=== PATIENT | male | born 1955 | race Caucasian/White ===

== ENCOUNTER 2016-11-24 17:59 | Emergency (ER) | payer BC ==
[2016-11-24 18:08] VITALS: BP 137/86
--- NOTE | 2016-11-24 18:34 | EDM.PDOC ---
ED HPI GENERAL MEDICAL PROBLEM - General Chief Complaint: Laceration Stated Complaint: crushed toe Time Seen by Provider: 11/24/16 18:01 Source of Information: Reports: Patient, Family, RN, RN Notes Reviewed History Limitations: Reports: No Limitations - History of Present Illness INITIAL COMMENTS - FREE TEXT/NARRATIVE: Patient presents to the emergency room at [facility] after he sustained a crush injury to the left great toe. The patient states he was lifting a porcelain [place] sign off his carotid wall, when the signs slipped landing directly on the left great toe causing toenail avulsion. The patient denies any recent left foot injuries. No recent left foot surgeries. The patient denies any numbness tingling or paresthesia to the affected extremity. Onset: Today Left Foot Pain Score (Numeric/FACES): 2 - Related Data Allergies Allergy/AdvReac Type Severity Reaction Status Date / Time No Known Drug Allergies Allergy Other Verified 04/03/15 15:03 Home Meds: Home Meds Acetaminophen [Pain Relief] 650 mg PO Q4HR PRN 05/04/14 [History] Aspirin [Gabby Chewable Aspirin] 81 mg PO DAILY 05/04/14 [History] Losartan Potassium 25 mg PO DAILY 05/04/14 [History] Metoprolol Succinate 25 mg PO DAILY 05/04/14 [History] Ticagrelor [Brilinta] 90 mg PO BID 05/04/14 [History] atorvaSTATin Calcium [Atorvastatin Calcium] 80 mg BEDTIME 05/04/14 [History] Social & Family History - Tobacco Use Smoking Status *Q: Never Smoker Second Hand Smoke Exposure: No - Alcohol Use Days Per Week of Alcohol Use: 0 - Recreational Drug Use Recreational Drug Use: No ED ROS GENERAL - Review of Systems Review Of Systems: See Below Constitutional: Reports: No Symptoms. Denies: Fever, Chills, Weakness Respiratory: Denies: Shortness of Breath, Cough Cardiovascular: Denies: Chest Pain, Palpitations Musculoskeletal: Reports: Foot Pain Skin: Reports: Wound (crush injury to left great toe) Neurological: Reports: No Symptoms. Denies: Numbness, Paresthesia, Tingling ED EXAM, SKIN/RASH Exam: See Below Exam Limited By: No Limitations General Appearance: Alert, No Apparent Distress Respiratory/Chest: No Respiratory Distress, Lungs Clear, Normal Breath Sounds Cardiovascular: Regular Rate, Rhythm Peripheral Pulses: 2+: Posterior Tibial (L), Dorsalis Pedis (L) Extremities: Slow Capillary Refill (left great toe) Neurological: Alert, Oriented Skin: Warm, Dry, Normal Color, No Rash, Wound/Incision Location, Skin: Lower Extremity, Left Characteristics: Other (Crush injury to the left great toe, complete nail avulsion with subungual hematoma laceration to the cuticle area, small great venous ooze) Associated features: Tenderness ED SKIN PROCEDURES - Additional/Other Procedure(s) Other (Free Text) Procedure(s): Left great toe numbed with 10cc 1% Lidocaine; tourniquet applied; once adequate anesthesia was achieved, the entire toe nail was removed without difficulty. Sterile dressing applied and covered with Coban. Tourniquet removed. Darco shoe applied. Course - Vital Signs Last Recorded V/S: Last Vital Signs Temp 35.7 C 11/24/16 18:06 Pulse 67 11/24/16 18:06 Resp 18 11/24/16 18:06 BP 137/86 11/24/16 18:06 Pulse Ox 94 L 11/24/16 18:06 - Orders/Labs/Meds Orders: Active Orders 24 hr Category Date Time Status Toes Great Toe Lt TA [CR] Stat Exams 11/24/16 18:29 Taken Meds: Medications Discontinued Medications Generic Name Dose Route Start Last Admin Trade Name Davian PRN Reason Stop Dose Admin Lidocaine HCl 30 ml 11/24/16 18:41 11/24/16 19:31 Xylocaine-Mpf 1% INJECT 11/24/16 18:42 10 ml ONETIME ONE Administration Departure - Departure Time of Disposition: 20:08 Disposition: Home, Self-Care 01 Condition: good Clinical Impression: Nail avulsion of toe Qualifiers: Encounter type: initial encounter Qualified Code(s): S91.209A - Unspecified open wound of unspecified toe(s) with damage to nail, initial encounter Fracture, phalanx, foot Qualifiers: Encounter type: initial encounter Toe: great toe Fracture type: closed Phalanx : distal Fracture alignment: nondisplaced Laterality: left Qualified Code(s): S92.425A - Nondisplaced fracture of distal phalanx of left great toe, initial encounter for closed fracture - Discharge Information Instructions: Nail Avulsion, Fingernail or Toenail Removal, Toe Fracture Forms: ED Department Discharge Additional Instructions: 1. Stay well hydrated and rest 2. Wear Darco show at all times for the next 4 weeks 3. Leave bandage on for the next 3 days, then remove 4. Establish care for a recheck and additional xray to make sure your fracture is healing and also check on healing of the nail bed 5. Take pain medication sparingly as it can make you drowsy 6. It will take at least 9 months for toenail to regrow 7. Return as symptoms warrant - Problem List Review Problem List Initiated/Reviewed/Updated: Yes - My Orders Last 24 Hours: My Active Orders 11/24/16 18:29 Toes Great Toe Lt TA [CR] Stat - Assessment/Plan Last 24 Hours: My Active Orders 11/24/16 18:29 Toes Great Toe Lt TA [CR] Stat
[2016-11-24] MEDS ORDERED: Lidocaine 1% 30 ML SDV INJECT ONE (18:41)
[2016-11-24] MEDS ORDERED: Take Home: Acetaminophen/HYDROcodone 325-5 MG, 5 Tab Pack PO ONE (20:14)
[2016-11-24] MEDS ORDERED: Diphtheria,Pertussis(Acell),Tetanus Vaccine 0.5 ML Syringe IM ONE (21:27)
== END 2016-11-24 20:23 | disposition home or self-care (01) ==
LOC: VM.ED 17:59
DX: S92.425A Nondisplaced fracture of distal phalanx of left great toe, initial encounter for closed fracture (principal); S91.202A Unspecified open wound of left great toe with damage to nail, initial encounter; Z79.82 Long term (current) use of aspirin; Z79.899 Other long term (current) drug therapy; X50.0XXA Overexertion from strenuous movement or load, initial encounter
CPT/HCPCS: 11730; 73660; 99283; A9270

== ENCOUNTER 2016-11-25 20:55 | Observation (INO) | payer BC ==
[2016-11-25] MEDS ORDERED: HYDROmorphone 1 MG/ML Syringe IM ONE (21:09)
[2016-11-25] MEDS ORDERED: Ondansetron 4 MG Tab.DIS PO ONE (21:09)
[2016-11-25] MEDS ORDERED: Cyclobenzaprine 10 MG Tab PO ONE (21:09)
--- NOTE | 2016-11-25 23:19 | EDM.PDOC ---
ED HPI GENERAL MEDICAL PROBLEM - General Chief Complaint: Back Pain or Injury Stated Complaint: low back pain Time Seen by Provider: 11/25/16 20:59 Source of Information: Reports: Patient History Limitations: Reports: No Limitations - History of Present Illness INITIAL COMMENTS - FREE TEXT/NARRATIVE: Patient reports injuring his back last week moving a bobcat shovel. He has had pain for about the last week but this afternoon the back pain was so intense that he was unable to walk. Pain is described as being to his left lower back, buttock, and hip. Denies any history of prior back injury. He has no other complaints this evening. Was seen yesterday after dropping a steel sign on his toe. His nail was removed for that. 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(s) (norco) Lower Back Pain Score (Numeric/FACES): 3 - Related Data Allergies Allergy/AdvReac Type Severity Reaction Status Date / Time No Known Drug Allergies Allergy Other Verified 11/25/16 21:01 Home Meds: Home Meds Acetaminophen [Pain Relief] 650 mg PO Q4HR PRN 05/04/14 [History] Aspirin [Gabby Chewable Aspirin] 81 mg PO DAILY 05/04/14 [History] Losartan Potassium 25 mg PO DAILY 05/04/14 [History] Metoprolol Succinate 25 mg PO DAILY 05/04/14 [History] Ticagrelor [Brilinta] 90 mg PO BID 05/04/14 [History] atorvaSTATin Calcium [Atorvastatin Calcium] 80 mg BEDTIME 05/04/14 [History] Past Medical History Other HEENT History: noncontributory Social & Family History - Tobacco Use Smoking Status *Q: Unknown Ever Smoked Second Hand Smoke Exposure: No - Caffeine Use Caffeine Use: Reports: Coffee - Alcohol Use Days Per Week of Alcohol Use: 0 - Recreational Drug Use Recreational Drug Use: No ED ROS GENERAL - Review of Systems Review Of Systems: See Below Constitutional: Reports: No Symptoms HEENT: Reports: No Symptoms Respiratory: Reports: No Symptoms Cardiovascular: Reports: No Symptoms Endocrine: Reports: No Symptoms GI/Abdominal: Reports: No Symptoms : Reports: No Symptoms Musculoskeletal: Reports: Back Pain, Leg Pain Skin: Reports: No Symptoms Neurological: Reports: No Symptoms Psychiatric: Reports: No Symptoms Hematologic/Lymphatic: Reports: No Symptoms Immunologic: Reports: No Symptoms ED EXAM,LOWER BACK PAIN/INJURY - Physical Exam Exam: See Below Exam Limited By: No Limitations General Appearance: Alert, WD/WN, Mild Distress Eye Exam: Bilateral Eye: EOMI, PERRL Respiratory/Chest: No Respiratory Distress, Lungs Clear Cardiovascular: Normal Peripheral Pulses, Regular Rate, Rhythm GI/Abdominal: Normal Bowel Sounds, Soft, Non-Tender Back Exam: Decreased Range of Motion, Muscle Spasm Extremities: Normal Inspection, Normal Range of Motion, Non-Tender, No Pedal Edema, Normal Capillary Refill Neurological: Alert, Normal Mood/Affect, Normal Dorsiflexion, CN II-XII Intact, Normal Plantar Flexion, Normal Reflexes, Oriented x 3, Abnormal Gait, Straight Leg Raise (L), Straight Leg Raise (R), Difficulty Walking. No: Normal Gait Course - Vital Signs Last Recorded V/S: Last Vital Signs Temp 35.7 C 11/25/16 20:58 Pulse 65 11/25/16 20:58 Resp 18 11/25/16 20:58 BP 129/76 11/25/16 20:58 Pulse Ox 95 11/25/16 20:58 - Orders/Labs/Meds Orders: Active Orders 24 hr Category Date Time Status Lumbar Spine 2 or 3V [CR] Stat Exams 11/25/16 20:59 Taken Meds: Medications Discontinued Medications Generic Name Dose Route Start Last Admin Trade Name Davian PRN Reason Stop Dose Admin Cyclobenzaprine HCl 10 mg 11/25/16 21:09 11/25/16 22:10 Flexeril PO 11/25/16 21:10 10 mg ONETIME ONE Administration Hydromorphone HCl 1 mg 11/25/16 21:09 11/25/16 22:13 Dilaudid IM 11/25/16 21:10 1 mg ONETIME ONE Administration Ondansetron HCl 4 mg 11/25/16 21:09 11/25/16 22:09 Zofran Odt PO 11/25/16 21:10 4 mg ONETIME ONE Administration - Radiology Interpretation Free Text/Narrative:: lumbar spine images, negative for any acute injury Departure - Departure Time of Disposition: 22:30 Disposition: Refer to Observation Condition: good Clinical Impression: Intractable low back pain - Discharge Information Instructions: Back Pain, Adult, [id number], Muscle Strain, [id number] Forms: ED Department Discharge - Problem List & Annotations (1) Intractable low back pain SNOMED Code(s): 90667713041361311 Code(s): M54.5 - LOW BACK PAIN Status: Acute Priority: Medium Current Visit: Yes - Problem List Review Problem List Initiated/Reviewed/Updated: Yes - My Orders Last 24 Hours: My Active Orders 11/25/16 20:59 Lumbar Spine 2 or 3V [CR] Stat - Assessment/Plan Admission H&P: Please use this note as an admission H&P Last 24 Hours: My Active Orders 11/25/16 20:59 Lumbar Spine 2 or 3V [CR] Stat Assessment:: intractable low back pain Plan: admit to observation with medication given to relieve pain and provide for self ambulation, as he is unable to presently walk due to pain.
[2016-11-26] MEDS ORDERED: Sodium Chloride 0.9% 10 ML Syringe FLUSH PRN (00:33)
[2016-11-26] MEDS ORDERED: Morphine 2 MG/ML Syringe IVPUSH PRN (00:33)
[2016-11-26] MEDS ORDERED: Ondansetron 4 MG Tab.DIS PO PRN (00:33)
[2016-11-26] MEDS ORDERED: Cyclobenzaprine 10 MG Tab PO PRN (00:36)
[2016-11-26] MEDS ORDERED: predniSONE 20 MG Tab PO SCH (00:45)
[2016-11-26] MEDS: Acetaminophen/HYDROcodone 325-5 MG Tab PO PRN ×2 (01:32→12:07)
[2016-11-26] MEDS: predniSONE 20 MG Tab PO SCH ×2 (01:34→02:01)
[2016-11-26] MEDS: Enoxaparin 40 MG/0.4 ML Syringe SUBCUT SCH ×2 (01:34→08:23)
[2016-11-26] MEDS ORDERED: Aspirin 81 MG Tab.Chew PO SCH (08:00)
[2016-11-26] MEDS ORDERED: Losartan 25 MG Tab PO SCH (08:00)
[2016-11-26] MEDS ORDERED: Metoprolol Succinate 25 MG Tab.ER PO SCH (08:00)
[2016-11-26] MEDS ORDERED: Non-Formulary Medication 1 Each (Ticagrelor [Brilinta] 90 MG) PO SCH (08:00)
[2016-11-26] MEDS ORDERED: Naproxen 500 MG Tab PO SCH ×2 (08:00→18:00)
--- NOTE | 2016-11-26 11:15 | PN ---
Progress Note for STEPHANI CHAVARRIA Date: 11/26/2016 Room #: VM.205 SUBJECTIVE: Stephani is on hospital day #2, following admission for acute low back pain with left side radiculopathy. The patient was initially admitted by Lan Clements. Please refer to his H and P regarding this patient. The patient states that he is feeling better after being started on the [place] and the Flexeril. He also was started on prednisone as well as naproxen. He also has been prescribed morphine 2 mg every 4 hours as needed for breakthrough pain. The patient has not had physical therapy yet, but he states that he is having easier time getting up out of bed to use the bathroom. PHYSICAL EXAMINATION: Vital Signs: Blood pressure is 121/74, pulse rate 52, temperature is 36.5, respiratory rate is 16, and O2 saturations 97%. Skin: Warm, pink, and dry. HEENT: Head is normocephalic and atraumatic. Mouth, oral mucosa is moist. Lungs: Clear to auscultation. Abdomen: Soft and nontender. Back: He does have point tenderness and muscle spasm to the mid to lower lumbar paraspinal muscles. The patient does not report any urinary or fecal incontinence or saddle anesthesia. Rectal: Deferred. ASSESSMENT: Acute low back pain. PLAN: The patient will anticipate discharge later this afternoon. We will continue with the [place] and Flexeril and will have him work with physical therapy. I did speak with the physical therapy and they plan on putting him in traction this afternoon or later this morning. Also did advise the nursing to have him ambulate as much as possible. All questions were answered. MWK: 11/26/2016 10:23:38 MODL: 11/26/2016 11:09:13 /[id number]
[2016-11-26 13:40] VITALS: BP 116/70
[2016-11-26] MEDS ORDERED: atorvaSTATin 40 MG Tab PO SCH (20:00)
--- NOTE | 2016-11-27 02:42 | DISCH ---
ADMITTING PROVIDER: ERIC Ramirez. DISCHARGING PROVIDER: Claude Harrison PA-C. ADMITTING DIAGNOSIS: Intractable low back pain with left lower extremity radiculopathy. DISCHARGE DIAGNOSIS: Intractable low back pain with left lower extremity radiculopathy. SUBJECTIVE: The patient presented to the emergency room last evening with complaints of low back pain and radiculopathy into his left hip and buttock. He states that approximately 1 week ago he attempted to move the bucket of a skidsteer device. He states that he did not experience any pain initially, but throughout the course of the day, he began experiencing severe low back pain with radiation into the left buttock area. He states that the symptoms did gradually improve and then began to worsen again. He states that he is experiencing severe discomfort, is unable to bend at the waist due to the pain. He states he is not experiencing any saddle anesthesia or urinary or fecal incontinence or retention. He states that he does have a history of chronic low back pain with occasional exacerbations, but he states that this exacerbation is worse than normal. PHYSICAL EXAMINATION: Vital Signs: Blood pressure is 116/70, heart rate is 56, temperature is 36.5, respiratory rate is 12, O2 saturation is 95% on room air. Skin: Warm, pink, and dry. Musculoskeletal: He does have tenderness and spasm to the paraspinal muscles of the lumbar spine. No obvious step-offs or deformity noted. Unable to reproduce the discomfort with palpation to the left buttock area. No obvious deformity to this area either. No increased discomfort with manipulation of either the left or right lower extremities. Patellar reflexes are 2+. Straight leg raise is positive bilaterally. HOSPITAL COURSE: The patient was started on [place] 10/325 and was given 1 to 2 every 4 to 6 hours as needed for pain. He was also given morphine 2 mg IV for breakthrough pain. He did participate and had a very successful course of physical therapy today. He was able to walk with minimal discomfort. He states that he did have increased discomfort when he was placed in traction, however. DISCHARGE CONDITION: Good. DISPOSITION: Home with self-care. His is a nurse here at the hospital and will help him with his care. He should not drive or operate machinery if he is taking these pain medications. DISCHARGE MEDICATIONS: Continue with regular home medications. In addition, we will start: 1. [place] 10/325 one every 4-6 hours as needed for pain. 2. Cyclobenzaprine 10 mg one 3 times daily for muscle spasm. 3. Naproxen sodium 500 mg 1 twice daily for pain. 4. Prednisone 40 mg daily for 6 days. DISCHARGE INSTRUCTIONS: The patient was advised to ambulate as much as possible. He was given extensive handouts on exercises that he should perform by Physical Therapy. He was set up for future physical therapy appointments and also was scheduled to follow up with Con Harris at [facility]. He is to return to the emergency room if he develops any saddle anesthesia, incontinence, or other signs of cauda equina syndrome. GEOVANYK: 11/26/2016 15:33:43 MODL: 11/27/2016 02:23:59 /[id number] PAVITHRA
== END 2016-11-26 14:35 | disposition home or self-care (01) ==
LOC: VM.ED 20:55 → VM.MS 22:30 → VM.ED 22:30
PROVIDERS: ADMIT Nurse Practitioner Family; ATTEND Nurse Practitioner Family
DX: M54.5 Low back pain (principal); M54.16 Radiculopathy, lumbar region; Z79.82 Long term (current) use of aspirin; Z79.899 Other long term (current) drug therapy; X50.0XXA Overexertion from strenuous movement or load, initial encounter
CPT/HCPCS: 72100; 90471; 90715; 96372; 97012; 97110; 97161; 99284; A9270; G0378; J1170; J1650; J7050

== ENCOUNTER 2022-03-28 09:09 | Day surgery (SDC) | payer MEDICARE, OTHER ==
[~2022-03-28 09:09] MED LIST: Lactated Ringers 1,000 ML IV SCH; Midazolam 1 MG/ML 2 ML SDV IVPUSH PRN; Sodium Chloride 0.9% 10 ML Syringe FLUSH PRN; fentaNYL 100 MCG/2 ML SDV IVPUSH PRN
[2022-03-28] MEDS ORDERED: fentaNYL 100 MCG/2 ML SDV ONE (11:12)
[2022-03-28] MEDS ORDERED: Midazolam 1 MG/ML 2 ML SDV ONE ×2 (11:12→11:36)
[2022-03-28 13:12] VITALS: BP 130/75; PULSE 58
== END 2022-03-28 13:45 | disposition home or self-care (01) ==
LOC: VM.SDS 09:09
PROVIDERS: ATTEND Family Medicine
DX: Z12.11 Encounter for screening for malignant neoplasm of colon (principal); D12.8 Benign neoplasm of rectum; I10 Essential (primary) hypertension; J44.9 Chronic obstructive pulmonary disease, unspecified; I25.10 Atherosclerotic heart disease of native coronary artery without angina pectoris; E75.6 Lipid storage disorder, unspecified; M19.90 Unspecified osteoarthritis, unspecified site; M72.0 Palmar fascial fibromatosis [Dupuytren]; K21.9 Gastro-esophageal reflux disease without esophagitis; Z98.890 Other specified postprocedural states; Z79.899 Other long term (current) drug therapy; Z79.82 Long term (current) use of aspirin
CPT/HCPCS: 45385; J2250; J3010; J7120

== ENCOUNTER 2025-02-21 17:21 | Emergency (ER) | payer MEDICARE, OTHER ==
[2025-02-21 17:48] VITALS: PULSE 65
[2025-02-21 18:01] LABS: BASOPHILS ABSOLUTE AUTO 0.0 x10^3/uL (0.0-0.2); BASOPHILS PERCENT AUTO 0.6 % (0.2-1.2); EOSINOPHILS ABSOLUTE AUTO 0.1 x10^3/uL (0.0-0.5); EOSINOPHILS PERCENT AUTO 1.4 % (0.0-4.0); IMMATURE GRAN ABSOLUTE AUTO 0.01 x10^3/uL (0.00-0.07); IMMATURE GRAN PERCENT AUTO 0.10 % (0.00-0.43); LYMPHOCYTES ABSOLUTE AUTO 1.8 x10^3/uL (1.0-4.8); LYMPHOCYTES PERCENT AUTO 24.4 % (25.0-50.0); MONOCYTES ABSOLUTE AUTO 0.7 x10^3/uL (0.0-0.8); MONOCYTES PERCENT AUTO 10.2 % (2.0-11.0); NEUTROPHILS ABSOLUTE AUTO 4.6 x10^3/uL (1.8-7.7); NEUTROPHILS PERCENT AUTO 63.3 % (50.0-80.0); PLATELET COUNT,PLT 171 x10^3/uL (130-400); RED BLOOD CELL COUNT 4.89 x10^6/uL (4.5-6.0); WHITE BLOOD CELL COUNT,WBC 7.2 x10^3/uL (4.0-10.0)
[2025-02-21 18:20] LABS: A/G RATIO 1.44; ALANINE AMINOTRANSFERASE,ALT 24 U/L (16-63); ASPARTATE AMNIOTRANSFERASE,AST 14 U/L (15-37); BILIRUBIN TOTAL 0.4 mg/dL (0.2-1.0); BLOOD UREA NITROGEN,BUN 19 mg/dL (7-18); CARBON DIOXIDE,CO2 26 mmol/L (21-32); CHLORIDE,CL 107 mmol/L (98-107); CREATININE 1.0 mg/dL (0.70-1.30); EST CRCL DRUG DOSING (CG) 72.32 mL/min; GLUCOSE RANDOM 99 mg/dL (70-99); POTASSIUM,K 3.9 mmol/L (3.5-5.1); PROTEIN TOTAL,TP 6.1 g/dL (6.4-8.2); SODIUM,NA 142 mmol/L (136-145)
[2025-02-21 18:21] LABS: ESTIMATED GFR 81 mL/min (>=60)
[2025-02-21 19:32] VITALS: BP 136/82
== END 2025-02-21 19:15 | disposition home or self-care (01) ==
LOC: VM.ED 17:21
DX: R20.2 Paresthesia of skin (principal); I25.10 Atherosclerotic heart disease of native coronary artery without angina pectoris; I10 Essential (primary) hypertension; Z87.891 Personal history of nicotine dependence
CPT/HCPCS: 36415; 70450; 80053; 82947; 85025; 86140; 99283; 99284